=== PATIENT | male | born 1985 | race Caucasian/White ===

== ENCOUNTER 2017-06-11 16:24 | Emergency (ER) | payer OTHER ==
[~2017-06-11] VITALS: Ht 180.3 cm; Wt 100.0 kg
[2017-06-11 16:39] VITALS: BP 136/56; PULSE 91; RESP 16; TEMP 98.4; O2SAT 97
[2017-06-11] MEDS ORDERED: IBUPROFEN 600 MG TAB PO ONE (18:00)
--- NOTE | 2017-06-11 18:13 | PD ---
HPI . Right ankle pain Chief Complaint: Injury Time Seen by Provider: 17:49 Travel History International Travel<30 days: No Contact w/Intl Traveler<30days: No Traveled to known affect area: No History of Present Illness HPI 31-year-old male patient presents emergency department for evaluation of right ankle pain. The pain started at approximately 9 AM when the patient fell off of a roof. The roof is approximately 10 foot tall. 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 The patient landed on his right foot and there was a loud audible pop from his right ankle that multiple people heard. The patient denies any other pain or injuries during the fall area patient denies any head or losing consciousness. Patient denies any back pain. No midline spinal tenderness noted. Patient denies any incontinence of urine or stool. Patient states he has voided since the initial fall. There is mild edema noted to the right ankle, no ecchymosis, erythema, cyanosis or obvious deformity. The right foot is neurovascularly intact. The patient has been ambulatory since the initial injury. [facility] Past Medical History Medical History: Denies Significant Hx Tetanus Vaccination: Unknown Past Surgical History Surgical History: No Previous Surgery Social History Alcohol Use: Yes (RARE) Tobacco Use: No Substance Use: No Allergies-Medications (Allergen,Severity, Reaction): Coded Allergies: penicillin G (Unverified Allergy, Severe, Hives, 06/11/17) Reported Meds & Prescriptions Reported Meds & Active Scripts Active No Active Prescriptions or Reported Medications Review of Systems Except as stated in HPI: all other systems reviewed are Neg Physical Exam Narrative GENERAL: Well-nourished, well-developed 31-year-old male patient in no acute distress. Nontoxic appearing. SKIN: Focused skin assessment warm/dry. HEAD: Normocephalic. Atraumatic. NEUROLOGICAL: Awake and alert. Cranial nerves II through XII intact. Motor and sensory grossly within normal limits. Five out of 5 muscle strength in all muscle groups. Normal speech. EYES: No scleral icterus. No injection or drainage. NECK: Supple, trachea midline. No JVD or lymphadenopathy. CARDIOVASCULAR: Regular rate and rhythm without murmurs, gallops, or rubs. Pedal pulses 2+ bilaterally. RESPIRATORY: Breath sounds equal bilaterally. No accessory muscle use. GASTROINTESTINAL: Abdomen soft, non-tender, nondistended. MUSCULOSKELETAL: Right ankle tenderness to palpation. Mild edema, no ecchymosis , erythema, cyanosis or obvious deformity noted. Right ankle retains full range of motion with dorsi and pedal flexion. Capillary refill 2 seconds. BACK: Nontender without obvious deformity. No CVA tenderness. Data Data Last Documented VS Vital Signs Date Time Temp Pulse Resp B/P (MAP) Pulse Ox O2 Delivery O2 Flow Rate FiO2 06/11/17 16:39 98.4 91 16 136/56 (82) 97 Orders Orders Ankle, Complete ([id number]) (06/11/17 17:50) Ice/Cold Pack (06/11/17 17:50) Ibuprofen (Motrin) (06/11/17 18:00) MDM Medical Decision Making Medical Screen Exam Complete: Yes Emergency Medical Condition: Yes Differential Diagnosis Differential diagnosis as include but not limited to right ankle sprain, ligamental injury, right ankle fracture, right ankle contusion Narrative Course 31-year-old male patient presents emergency department for evaluation of right ankle pain following a fall off a roof. The fall happened earlier today around 9 AM. The patient states there is a loud audible pop heard by multiple people. X-ray of the right ankle ordered and pending. Ice applied to the right ankle. Ibuprofen ordered for pain management. X-ray of the right ankle shows no acute abnormality. Based on patient's symptoms, clinical presentation, radiological results, vital sign review and physical exam it is not necessary to admit the patient to the hospital or keep the patient in the emergency department for further evaluation. Right ankle will be Darvin wrapped and patient will be discharged home with instructions to follow-up with primary care and orthopedics. Diagnosis Primary Impression: Ankle sprain Qualified Codes: S93.401A - Sprain of unspecified ligament of right ankle, initial encounter Referrals: Orthopedist Primary Care Physician Patient Instructions: Ankle Sprain (DC), General Instructions Additional Instructions: Please return to emergency department if your symptoms return or worsen. Follow up with your primary care provider and/or orthopedics. Rice therapy to right ankle, rest, ice, Darvin wrap when ambulatory and elevated when resting. Use ibuprofen as directed as needed for pain and swelling. Med/Other Pt SpecificInfo: Prescription(s) given Scripts Ibuprofen (Ibuprofen) 600 Mg Tab 600 MG PO Q8HR Y for PAIN, #12 TAB 0 Refills Prov: Jaz Douglass 06/11/17 Disposition: 01 DISCHARGE HOME Condition: Stable Jaz Douglass Jun 11, 2017 18:13
--- NOTE | 2017-06-11 18:57 | RADRPT ---
EXAM DATE/TIME: 06/11/2017 17:53 [facility] COMPARISON: No previous studies available for comparison. INDICATIONS : Right ankle pain. MEDICAL HISTORY : None. SURGICAL HISTORY : None. ENCOUNTER: Initial ACUITY: 1 day PAIN SCORE: 7/10 LOCATION: Right ankle FINDINGS: Three view exam was performed of the right ankle. The bony structures are in normal alignment. No e vidence of fracture, dislocation, or soft tissue swelling. The ankle mortise is intact. No radiopaq ue foreign bodies are seen. Bony mineralization is normal. CONCLUSION: Unremarkable examination of the right ankle. Armen Arguelles MD on June 11, 2017 at 18:55 Board Certified Radiologist. This report was verified electronically.
[2017-06-11] MEDS ORDERED: IBUP-232 PO (19:09)
== END 2017-06-11 19:31 | disposition home or self-care (01) ==
LOC: PHEFT 16:24
DX: S93.401A Sprain of unspecified ligament of right ankle, initial encounter (principal); W13.2XXA Fall from, out of or through roof, initial encounter; Y99.0 Civilian activity done for income or pay
CPT/HCPCS: 73610; 99283